=== PATIENT | female | born 1950 ===

== ENCOUNTER → 2023-06-30 10:28 | Outpatient (CLI) | payer MEDICARE, SELFPAY ==
--- NOTE | ~2023-06-30 | MR_ITS ---
MRI of the left shoulder Technique: Axial proton-density fat-sat images, coronal proton density fat-sat and T2 fat-sat images, and sagittal T1-weighted and T2 fat-sat images were acquired. Clinical History: Pain Findings: There is minimal AC joint degenerative change. Coracoclavicular, coracoacromial, and coraco humeral ligaments are intact. Supraspinatus and infraspinatus tendons demonstrate moderate to severe distal tendinosis, without par tial or full-thickness tear. Subscapular tendon is intact, with moderate tendinosis. Tendon of the lo ng head of the biceps is probably intact. No labral tear identified. Inferior glenohumeral ligament is intact. No significant joint effusion or degenerative change of the glenohumeral joint. There is fluid distention of the subacromial/subdeltoid bursa. No muscle atrophy or edema evident. Impression: Subacromial/subdeltoid bursitis. Rotator cuff tendinosis, as above, without partial or full-thickness tear. Reviewed, dictated and finalized at [facility]. 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 Rotator cuff tendinosis, as above, without partial or full-thickness tear.
== END ==
PROVIDERS: PCP Family Medicine; Visit Provider Orthopaedic Surgery
DX: M25.512 Pain in left shoulder (principal); G89.29 Other chronic pain; M75.52 Bursitis of left shoulder
CPT/HCPCS: 73221